=== PATIENT | female | born 1965 | race Caucasian/White ===

== ENCOUNTER → 2019-04-14 | Outpatient (CLI) | payer OTHER ==
[~2019-04-14] MED LIST: AMBIEN 10 MG TA10 MG PO; B COMPLEX1 EACH PO; CYMBALTA30 MG PO; DECARA1250 MCG PO; IRON325 M1 PO
[2019-04-14 10:30] VITALS: BP 138/76
== END ==
LOC: M.INFUS 09:21
DX: D64.9 Anemia, unspecified (principal)

== ENCOUNTER → 2019-04-17 | Outpatient (CLI) | payer OTHER | LOC: M.INFUS 09:30 | DX: D64.9 Anemia, unspecified (principal) ==

== ENCOUNTER → 2019-04-20 | Outpatient (CLI) | payer OTHER ==
[2019-04-20 09:08] VITALS: BP 123/71
--- NOTE | 2019-04-27 15:31 | NUR ---
late entry for 04/20/2019 venofer 200mg iv start time 0920 and stop time 0950
== END ==
LOC: M.INFUS 07:12
DX: D64.9 Anemia, unspecified (principal)

== ENCOUNTER → 2019-04-23 | Outpatient (CLI) | payer OTHER | LOC: M.INFUS 09:00 | DX: D64.9 Anemia, unspecified (principal) ==

== ENCOUNTER → 2019-04-26 | Outpatient (CLI) | payer OTHER ==
[2019-04-26 09:35] VITALS: BP 127/73
--- NOTE | 2019-04-26 11:55 | NUR ---
ARRIVED AMBULATORY. DENEIS ADVERSE REACTION TO MULTIPLE INFUSIONS OF SAME. INFUSION COMPLETED AND TOLERATED WELL. DENEIS QUESTIONS OR NEEDS AT DISCHARGE.
== END ==
LOC: M.INFUS 05:09
DX: D64.9 Anemia, unspecified (principal)